=== PATIENT | male | born 1975 | race Caucasian/White ===

== ENCOUNTER → 2017-06-16 | Outpatient (CLI) | payer OTHER ==
--- NOTE | 2017-06-16 08:58 | DIAGNOSTIC IMAGING REPORT ---
PELVIS ONE VIEW HISTORY: PELVIS PAIN COMPARISON: None. FINDINGS: There is no fracture or dislocation. Soft tissues are unremarkable. No radiopaque foreign bodies. Cartilage spaces are maintained for age. Bilateral sacroiliac joints are intact. IMPRESSION: No fracture or dislocation within the pelvis or hips. Electronically signed by: Rodolfo Duarte M.D. 06/16/2017 8:57 AM Dictated Date/Time: 06/16/2017 8:46 AM
== END | disposition home or self-care (01) ==
LOC: C.RAD1850 08:30
PROVIDERS: ATTEND Emergency Medicine
DX: R10.2 Pelvic and perineal pain (principal); W19.XXXA Unspecified fall, initial encounter